=== PATIENT | male | born 1965 | race Caucasian/White ===

== ENCOUNTER 2017-11-30 15:17 | Outpatient (CLI) | payer OTHER ==
[2017-11-30 16:19] LABS: Hemoglobin 15.3 g/dL (14.0-18.0); Mean Corpuscular HGB CONC 35.4 g/dL (32.0-36.0); Mean Corpuscular Hemoglobin 35.6 pg (27.0-31.0); Mean Platelet Volume 6.2 fL (7.4-10.4); Platelet Count 241 thou/uL (130-400); White Blood Cell (WBC) Count 5.3 thou/uL (4.8-10.8)
[2017-11-30 16:41] LABS: Anion Gap 14 mmol/L (10-20); BUN (Urea Nitrogen) 16 mg/dL (8.4-25.7); Calc. Creatinine Clearance 0 mL/min (70-130); Carbon Dioxide 24 mmol/L (22-29); Chloride 102 mmol/L (98-107); Estimated GFR-MDRD Greater than 90; Glucose 79 mg/dL (70-105); Sodium 136 mmol/L (136-145)
--- NOTE | 2017-12-02 08:04 | EKG ---
Test Reason : Blood Pressure : / mmHG Vent. Rate : 072 BPM Atrial Rate : 072 BPM P-R Int : 142 ms QRS Dur : 096 ms QT Int : 378 ms P-R-T Axes : 062 081 058 degrees QTc Int : 413 ms Normal sinus rhythm Normal ECG When compared with ECG of 30-JAN-2015 08:38, No significant change was found Confirmed by DR. Pura SARKAR ([id number]) on 12/02/2017 8:03:45 AM Referred By: MYLES Confirmed By:DR. Pura SARKAR
== END 2017-11-30 15:18 | disposition home or self-care (01) ==
LOC: LABBT 15:17
PROVIDERS: ATTEND Orthopaedic Surgery
DX: Z01.818 Encounter for other preprocedural examination (principal); M75.101 Unspecified rotator cuff tear or rupture of right shoulder, not specified as traumatic
CPT/HCPCS: 80048; 85027; 93005; 93010

== ENCOUNTER 2017-12-07 06:41 | Day surgery (SDC) | payer OTHER ==
[2017-11-30 15:35] VITALS: BMI 22.9
[2017-12-07] MEDS ORDERED: Levofloxacin 500 mg/D5W 100 ml Premix Bag ONE (08:07)
[2017-12-07] MEDS ORDERED: Fentanyl 250 MCG/5 ML VIAL ONE (08:49)
[2017-12-07] MEDS ORDERED: Midazolam HCl 2 mg/2 ml Vial ONE (08:49)
[2017-12-07] MEDS ORDERED: traMADol HCl 50 MG TAB PO PRN ×2 (09:17)
[2017-12-07] MEDS ORDERED: Zolpidem Tartrate 5 MG TAB PO PRN (09:17)
[2017-12-07] MEDS ORDERED: Ropivacaine 0.2% 550 ML 550 ML NERVE BLCK SCH (09:17)
[2017-12-07] MEDS ORDERED: Promethazine HCl 25 MG/ML VIAL IM PRN (09:17)
[2017-12-07] MEDS ORDERED: HYDROcodone/Acetaminophen 10/325 mg Tablet PO PRN ×2 (09:17)
[2017-12-07] MEDS ORDERED: Ketorolac Tromethamine 30 MG/ML VIAL IVP PRN (09:17)
[2017-12-07] MEDS ORDERED: Ondansetron HCl/PF 4 MG/2 ML Vial IVP PRN (09:17)
[2017-12-07] MEDS ORDERED: Fentanyl 100 MCG/2 ML VIAL IV PRN (09:18)
[2017-12-07] MEDS ORDERED: Fentanyl 100 MCG/2 ML VIAL ONE (09:21)
--- NOTE | 2017-12-07 11:42 | OP ---
PREOPERATIVE DIAGNOSIS: Rotator cuff tear, right shoulder. POSTOPERATIVE DIAGNOSES: Rotator cuff tear, right shoulder. SURGICAL PROCEDURE: Right arthroscopic subacromial decompression, rotator cuff repair. SURGEON: Wolf Avila M.D. ANESTHESIA: General. BLOOD LOSS: Minimal. SPECIMEN: None. DRAINS: None. COMPLICATIONS: None. ASSISSTANT: None. PROCEDURE IN DETAIL: The patient was taken to the operating where general anesthesia induced, patien t placed in the left lateral decubitus position. Right arm was placed in 15 pounds of traction, prep ped and draped in the usual sterile fashion. Scope was placed in the glenohumeral joint. The glenoh umeral joint appeared to be good condition. The biceps tendon itself was in good condition. Rotator cuff tear easily identified from the articular surface. Scope was placed in the bursal surface. Ge nerous bursectomy was performed. CA ligament was taken down. Anterior inferior acromioplasty was pe rformed with a bur. The rotator cuff tear was freshened with a shaver. I freshened up the bone with a shaver to get bleeding bone. I placed a single corkscrew suture anchor through the defect passed sutures through the cuff and tied down a good watertight repair then reinforces with a double row typ e repair using a SwiveLock device. Shoulder was then drained. Portals closed with nylon suture. St erile dressings applied.
[2017-12-07] MEDS ORDERED: Ropivacaine 0.5% HCl/PF (150 MG/30 ML VIAL) ONE (15:10)
[2017-12-07] MEDS ORDERED: Ropivacaine 0.2% HCl/PF (40 MG/20 ML VIAL) ONE (15:10)
[2017-12-07] MEDS ORDERED: ePHEDrine/0.9% NaCl/PF SYRINGE 50 mg/10 ml ONE (15:38)
[2017-12-07] MEDS ORDERED: Ondansetron HCl/PF 4 MG/2 ML Vial ONE (15:38)
[2017-12-07] MEDS ORDERED: Propofol 200 MG/20 ML VIAL ONE (15:38)
[2017-12-07] MEDS ORDERED: Dexamethasone 20 MG/5 ML VIAL ONE (15:38)
[2017-12-07] MEDS ORDERED: Lidocaine 1% PF 5 ML VIAL ONE (15:38)
[2017-12-07] MEDS ORDERED: Ketorolac Tromethamine 30 MG/ML VIAL ONE (15:38)
[2017-12-07] MEDS ORDERED: Glycopyrrolate 0.2 MG/ML 5 ML SYRINGE ONE (15:38)
== END 2017-12-07 12:45 | disposition home or self-care (01) ==
LOC: SDC 06:41
PROVIDERS: ATTEND Orthopaedic Surgery
DX: M75.101 Unspecified rotator cuff tear or rupture of right shoulder, not specified as traumatic (principal); I10 Essential (primary) hypertension; K21.9 Gastro-esophageal reflux disease without esophagitis; E78.5 Hyperlipidemia, unspecified; F17.290 Nicotine dependence, other tobacco product, uncomplicated; Z88.0 Allergy status to penicillin; Z79.51 Long term (current) use of inhaled steroids; Z79.899 Other long term (current) drug therapy; Z98.890 Other specified postprocedural states
CPT/HCPCS: A4306; C1713; G8984-GP-CK; G8985-GP-CK; G8986-GP-CK; J1100; J1885; J1956; J2001; J2250; J2405; J2704; J2795; J3010; J3370

== ENCOUNTER 2017-12-18 13:57 | Outpatient (CLI) | payer OTHER ==
--- NOTE | 2017-12-18 16:15 | MRI ---
MRI LEFT HIP WITHOUT CONTRAST: Date: 12/18/17 HISTORY: M25.552, left hip pain. Evaluate for stress fracture. COMPARISON: None. FINDINGS: Bones: No fracture. No malalignment. There are some small erosions of the greater trochanter at the gluteus medius muscle insertion. There is abnormal edema within the iliopsoas muscle. There is no stress frac ture. No displaced fracture. No malalignment. No stress edema. Muscles: There is abnormal edema within the myotendinous junction of the iliopsoas. No iliopsoas tendon tear. Mild tendinosis. There is mild edema within the right obturator externus quadratus femoris muscles, as well as of the adductor brevis muscle and the pectineus and adductor longus. There is asymmetric, left greater than right, joint effusion. There is edema within the vastus interm edius muscle. The rectus femoris muscle is without edema. There appears to be an injury of the joint capsule medially near the intertrochanteric region of the femur. The left ligamentum teres is intact. Mild tendinosis of the semimembranosus tendon on the left and on the right. Intrapelvic Soft Tissues: Normal. There is degenerative tearing of the superior labrum. IMPRESSION: 1. Abnormal edema surrounding the left hip joint involving the soft tissues and muscles. There is al so posterior and medial capsular injury. This may reflect that the patient may have had a large joint effusion which has caused capsular rupture with inflammation of the adjacent myotendinous muscle drew ction. This does not have the normal appearance of a muscle injury. There is left greater than right hip joint effusion with a physiologic amount of fluid in the right hip. 2. No stress fracture. 3. Degenerative anterior superior labral tear. 4. Joint aspiration may be helpful in this patient. 5. Moderate bilateral gluteus medius tendinosis with left greater than right greater trochanteric bu rsitis. POS: [facility]
== END 2017-12-18 13:58 | disposition home or self-care (01) ==
LOC: SCSMRI 13:57
PROVIDERS: ATTEND Orthopaedic Surgery
DX: M25.552 Pain in left hip (principal); R60.0 Localized edema; S79.912A Unspecified injury of left hip, initial encounter; M25.452 Effusion, left hip; M25.451 Effusion, right hip; S73.192A Other sprain of left hip, initial encounter; M70.62 Trochanteric bursitis, left hip; M70.61 Trochanteric bursitis, right hip; M67.854 Other specified disorders of tendon, left hip

== ENCOUNTER 2018-08-15 15:00 | Outpatient (CLI) | payer OTHER ==
--- NOTE | 2018-08-15 15:33 | RAD ---
CHEST TWO VIEWS: History: Dyspnea. Comparison: None. FINDINGS: Lungs are clear. No pneumothorax or effusions. Cardiac silhouette and mediastinal contour is within n ormal limits. IMPRESSION: No acute intrathoracic abnormality. POS: [facility]
== END 2018-08-15 15:01 | disposition home or self-care (01) ==
LOC: RAD 15:00
PROVIDERS: ATTEND Internal Medicine Pulmonary Disease
DX: R06.00 Dyspnea, unspecified (principal)
CPT/HCPCS: 71046

== ENCOUNTER 2019-12-29 19:35 | Emergency (ER) | payer OTHER ==
[2019-12-29] MEDS ORDERED: Ibuprofen 200 MG TAB ONE (19:43)
[2019-12-29] MEDS ORDERED: Dexamethasone 10 MG/ML VIAL ONE ×2 (19:43→19:50)
[2019-12-29] MEDS ORDERED: Lidocaine 1% PF 5 ML VIAL ONE (19:45)
[2019-12-29] MEDS ORDERED: cefTRIAXone\\ROCEPHIN 1 GM VIAL ONE (19:45)
== END 2019-12-29 20:15 | disposition home or self-care (01) ==
LOC: ERS 19:35
DX: J02.0 Streptococcal pharyngitis (principal); E78.5 Hyperlipidemia, unspecified; K21.9 Gastro-esophageal reflux disease without esophagitis; I10 Essential (primary) hypertension; F17.290 Nicotine dependence, other tobacco product, uncomplicated; Z79.82 Long term (current) use of aspirin; Z79.899 Other long term (current) drug therapy
CPT/HCPCS: 96372; 99283; J0696; J1100; J2001

== ENCOUNTER 2020-01-27 13:38 | Outpatient (CLI) | payer OTHER ==
--- NOTE | 2020-01-27 14:10 | RAD ---
LUMBAR SPINE 3 VIEWS: HISTORY: Low back pain. COMPARISON: 05/30/2006. FINDINGS: No fracture, subluxation, or bony destruction is seen. Mild to moderate degenerative changes are not ed. There are vascular calcifications. IMPRESSION: Lumbar spondylosis. POS: [facility]
== END 2020-01-27 13:39 | disposition home or self-care (01) ==
LOC: RAD-FRANK 13:38
PROVIDERS: ATTEND Nurse Practitioner Family
DX: M54.5 Low back pain (principal); M47.816 Spondylosis without myelopathy or radiculopathy, lumbar region
CPT/HCPCS: 72100

== ENCOUNTER 2020-03-05 16:16 | Outpatient (CLI) | payer OTHER | END 2020-03-05 16:17 | disposition home or self-care (01) | LOC: CTENTCT 16:16 | PROVIDERS: ATTEND Student in an Organized Health Care Education/Training Program | DX: J32.9 Chronic sinusitis, unspecified (principal) | CPT/HCPCS: 70486 ==

== ENCOUNTER 2021-01-16 16:33 | Emergency (ER) | payer OTHER | END 2021-01-16 18:07 | disposition home or self-care (01) | LOC: ERS 16:33 | DX: M25.571 Pain in right ankle and joints of right foot (principal); E78.5 Hyperlipidemia, unspecified; K21.9 Gastro-esophageal reflux disease without esophagitis; I10 Essential (primary) hypertension; F17.290 Nicotine dependence, other tobacco product, uncomplicated; Z79.899 Other long term (current) drug therapy; Z79.82 Long term (current) use of aspirin ==

== ENCOUNTER 2021-01-25 09:02 | Outpatient (CLI) | payer OTHER | END 2021-01-25 09:03 | disposition home or self-care (01) | LOC: RAD-FRANK 09:02 | PROVIDERS: ATTEND Nurse Practitioner Family | DX: M79.671 Pain in right foot (principal) ==